=== PATIENT | male | born 1990 | race Caucasian/White ===

== ENCOUNTER 2016-09-18 05:24 | Emergency (ER) | payer SELFPAY ==
[~2016-09-18] VITALS: Ht 172.7 cm; Wt 59.0 kg
--- NOTE | 2016-09-18 05:24 | NUR ---
TO BED 2 BIB PARAMEDICS C/O HEROIN OVERDOSE. PT WAS GIVEN NARCAN 2MG INTRANASAL BY EMS HOTEL RECEPTIONIST. RECEIVE PT AAOX4 NO ACUTE DISTRESS NOTED, RESP EVEN AND UNLABORED. PLACE PT ON CARDIAC MONITORING, CONTINUOUS POX, O2@2L/NC. SL 20G TO L HAND HOTEL RECEPTIONIST. ER MD AT BEDSIDE TO EVAL PT. CALL LIGHT WITHIN REACH. WILL CONTINUE TO MONITOR PT CLOSELY.
--- NOTE | 2016-09-18 05:34 | NUR ---
YOLANDA OFFICERS AT BEDSIDE TALKING TO PT.
--- NOTE | 2016-09-18 06:39 | NUR ---
PT ASLEEP, NO ACUTE DISTRESS NOTED, RESP EVEN AND UNLABORED. CALL LIGHT WITHIN REACH.
--- NOTE | 2016-09-18 07:34 | NUR ---
PT SLEEPY AROUSSEABLE ASKED WHAT HAPPENED VSS AWAITING EVALUATION BY ER PROVIDER.
[2016-09-18 09:27] VITALS: BP 116/65
== END 2016-09-18 09:28 | disposition home or self-care (01) ==
LOC: ER 05:26
DX: T40.1X1A Poisoning by heroin, accidental (unintentional), initial encounter (principal); Y92.89 Other specified places as the place of occurrence of the external cause
CPT/HCPCS: A4606; Z7610